=== PATIENT | male | born 1955 | race Caucasian/White ===

== ENCOUNTER 2018-06-21 10:06 | Emergency (ER) | payer MEDICAID ==
[~2018-06-21] VITALS: Ht 180.3 cm; Wt 83.9 kg
[~2018-06-21 10:06] MED LIST: ALBUTEROL2.5 MG/31 INH; ASPIR 8181 MG PO; GABAPENTIN 100100 MG PO; JANUVIA50 MG PO; LISINOPRIL2.5 M1 PO; PREDNISONE 20 M20 M1 PO; TRAMADOL 50 MG50 MG PO; ZPAK PO
[2018-06-21] MEDS ORDERED: LYRICA 50 MG50 MG PO (10:14)
[2018-06-21] MEDS ORDERED: CARVEDILOL6.25 M1 PO (10:14)
[2018-06-21 10:58] VITALS: BP 152/69
== END 2018-06-21 10:58 | disposition home or self-care (01) ==
LOC: M.ERS 10:06
DX: S60.221A Contusion of right hand, initial encounter (principal); G89.29 Other chronic pain; M54.9 Dorsalgia, unspecified; F32.9 Major depressive disorder, single episode, unspecified; I10 Essential (primary) hypertension; E11.9 Type 2 diabetes mellitus without complications; J44.9 Chronic obstructive pulmonary disease, unspecified; W18.39XA Other fall on same level, initial encounter; Y93.89 Activity, other specified; Y92.89 Other specified places as the place of occurrence of the external cause; Y99.8 Other external cause status

== ENCOUNTER 2021-09-13 17:17 | Observation (INO) | payer OTHER, MEDICAID ==
[~2021-09-13] VITALS: Ht 175.3 cm; Wt 82.6 kg
[~2021-09-13 17:17] MED LIST changes: +CARVEDILOL6.25 M1 PO; +LYRICA 50 MG50 MG PO
[2021-09-13 17:22] VITALS: BP 158/71
[2021-09-13 17:46] LABS: ABSOLUTE BASOPHILS 0.1 thou/uL (0.0-0.2); ABSOLUTE EOSINOPHILS 0.3 thou/uL (0.0-0.7); ABSOLUTE LYMPHOCYTES 1.6 thou/uL (0.8-5.3); ABSOLUTE MONOCYTES 0.8 thou/uL (0.0-1.2); ABSOLUTE NEUTROPHILS 4.9 thou/uL (1.6-8.1); BASOPHILS 1.1 %; EOSINOPHILS 4.3 %; HEMATOCRIT 38.4 % (42.0-52.0); HEMOGLOBIN 13.2 gm/dL (14.0-18.0); LYMPHOCYTES 21.2 %; MCH 31.1 pg (26.0-34.0); MCHC 34.4 g/dL (28.0-37.0); MCV 90.3 fL (80.0-100.0); MPV 8.6 fl. (7.2-11.1); NUCLEATED RBCS 0 /100WBC; PLATELET COUNT* 231 thou/uL (150-400); POLYS 63.4 %; RBC 4.25 mil/uL (4.50-6.00); RDW-CV 13.8 % (10.5-14.5); WBC 7.7 thou/uL (4.0-11.0)
[2021-09-13 17:58] LABS: CALCIUM 8.5 mg/dL (8.5-10.1); POTASSIUM 3.8 mmol/L (3.5-5.1)
[2021-09-13 18:02] LABS: ALBUMIN 3.5 g/dL (3.4-5.0); MAGNESIUM 1.7 mg/dL (1.8-2.4); TOTAL BILIRUBIN 0.3 mg/dL (<0.1-1.0); TOTAL PROTEIN 6.7 g/dL (6.4-8.2)
--- NOTE | 2021-09-13 20:25 | NUR ---
REPORT GIVEN TO MATEO ESTRADA. WILL PREPARE TO TRANSPORT PT.
[2021-09-13 20:35] VITALS: BP 151/82
[2021-09-13 21:45] VITALS: BP 155/79
[2021-09-14 00:50] VITALS: BP 142/76
--- NOTE | 2021-09-14 04:14 | NUR ---
PT ARRIVED TO THE UNIT AT 2100. A&O X 4. ON RA. C/O LEFT SHOULDER PAIN. NORCO GIVEN. UP WITH SBA. BED ALARM ON FOR SAFETY. CALL LIGHT WITHIN REACH. WILL CONTINUE TO MONITOR.
[2021-09-14 06:39] VITALS: BP 144/78
[2021-09-14 08:00] VITALS: BP 148/70
--- NOTE | 2021-09-14 10:16 | EKG ---
[place] [address] ELECTROCARDIOGRAM REPORT Name: DIOGENES PRATT Room: [address] ADM IN .R.#: [id number] Admission: 09/13/21 Attend Phys: Morenita Craft, Discharge: Date of : 57 Date of Service: 09/13/21 1724 Report #: [id number] THIS REPORT FOR: //name// [facility] ED Test Date: 2021-09-13 Test Time: 17:24:18 Pat Name: DIOGENES PRATT Department: Room: [facility] Gender: M Medical Research Assistant: JAIME : [id number] Requested By: Home Brenner Order Number: [id number] MD: Erick Rodriguez Measurements Intervals [place] Rate: 84 P: 15 SD: 193 QRS: -13 QRSD: 91 T: 22 QT: 365 QTc: 432 Interpretive Statements Sinus rhythm Abnormal R-wave progression, early transition Probable left ventricular hypertrophy No previous ECG available for comparison Electronically Signed On 09-14-2021 10:16:07 CDT by Erick Rodriguez [email or web address] <ELECTRONICALLY SIGNED> By: Erick Rodriguez MD, FACC 09/14/21 1016 1724 1724 Erick Rodriguez MD, FAC /EPI
[2021-09-14 13:00] VITALS: BP 148/70
--- NOTE | 2021-09-14 13:14 | NUR ---
ASSUMED CARE OF PT AT 0730. PT A&0X4, COMPLAINS OF PAIN TO LEFT SHOULDER AND BACK-TREATED WITH PRN NORCO WITH PARTIAL RELIEF. TRACING SR ON THE PIPE PULLER. ON RA SAT UPPER 90'S. DENIES ANY SHORTNESS OF BREATH. PT UP SBA TO BAHTROOM. DENIES ANY DIZZINESS. PT GOAL FOR TODAY IS REMAIN FREE FROM DIZZINESS, PAIN MGMT AND DISCHARGE PLANNING TO HOME. AM ASSESSMENT CHARTED. MEDICATIONS PER JAN. PT REPOSITIONS SELF. HOURLY ROUNDING OBSERVED. BED IN LOW POSITION. CALL LIGHT WITHIN REACH. WILL CONTINUE PLAN OF CARE.
--- NOTE | 2021-09-14 14:52 | NUR ---
DISCHARGE ORDERS RECEIVED. DISCHARGE INSTRUCTIONS, CARE NOTES AND FOLLOW UP APPTS GIVEN TO PT. PT COMMUNICATES UNDERSTANDING OF DISCHARGE TEACHING. IV AND SENIOR PROJECT COORDINATOR REMOVED. PT DISCHARGED WITH ALL BELONGINGS AND PAPERWORK VIA WHEELCHAIR WITH NURSING STAFF TO [facility]WN [facility]ERSON[facility].
== END 2021-09-14 14:52 | disposition home or self-care (01) ==
LOC: M.ERS 17:17 → M.TBA-ER 18:38 → M.2W 18:38
PROVIDERS: Emergency Medicine Emergency Medical Services; ADMIT Internal Medicine; ATTEND Internal Medicine
DX: R55 Syncope and collapse (principal); Z20.822 Contact with and (suspected) exposure to COVID-19; M54.9 Dorsalgia, unspecified; G89.29 Other chronic pain; R07.89 Other chest pain; J44.9 Chronic obstructive pulmonary disease, unspecified; I10 Essential (primary) hypertension; Z86.73 Personal history of transient ischemic attack (TIA), and cerebral infarction without residual deficits; Z79.899 Other long term (current) drug therapy; Z23 Encounter for immunization